=== PATIENT | female | born 1930 | race Caucasian/White ===

== ENCOUNTER 2022-01-15 11:04 | Observation (INO) ==
[2022-01-15] MEDS ORDERED: ACETAMINOPHEN 325 MG TABLET PO PRN (12:46)
[2022-01-15] MEDS ORDERED: ONDANSETRON 4 MG/2 ML VIAL IV PRN (12:46)
[2022-01-15 13:24] LABS: Basophils % 0.3 % (0.0-0.8); Hematocrit 40.2 VOL% (35.7-47.0); Hemoglobin 13.4 GM/DL (12.0-16.0); Immature Granulocytes % 0.3 %; Immature Granulocytes Absolute 0.01 #; Lymphocytes # 0.5 10*3/uL (1.4-4.0); Lymphocytes % 14.6 % (21.3-54.2); Mean Corpuscular HGB Conc 33.3 GM/DL (32-36); Mean Corpuscular Volume 93.1 FL (87-102); Mean Platelet Volume 8.6 FL (9.6-12.0); Monocytes # 0.5 10*3/uL (0.11-0.8); Monocytes % 13.5 % (1.7-12.7); Neutrophils % 71.3 % (38.7-73.9); Platelet Count 185 T/CUMM (130-400); Red Blood Count 4.32 MC/CUMM (3.8-5.5); Red Cell Distribution Width 12.6 % (9.3-17.3); White Blood Count 3.7 T/CUMM (4-12)
[2022-01-15 13:45] LABS: Albumin 3.9 G/DL (3.4-5.0); Bilirubin,Total 0.5 MG/DL (0.20-1.00); Calcium 8.8 MG/DL (8.5-10.1); Osmolality,Calculated 264.5 MOS/KG (273-304); Potassium 3.6 MMOL/L (3.5-5.1); Total Protein 6.9 G/DL (6.4-8.2)
[2022-01-15] MEDS: cefTRIAXone 1,000 MG in SODIUM CHLORIDE 0.9% 100 ML IV SCH (17:35)
[2022-01-15] MEDS: SODIUM CHLORIDE 0.45% 1,000 ML IV SCH (17:35)
[2022-01-15] MEDS: ENOXAPARIN 30 MG/0.3 ML SYRINGE SUBCUT SCH (20:57)
[2022-01-15] MEDS: LOSARTAN/HCTZ 50-12.5 MG TABLET PO SCH (20:58)
[2022-01-15] MEDS: DOCUSATE SODIUM 100 MG CAPSULE PO SCH (20:59)
[2022-01-16 05:57] LABS: Risk Ratio 1.75
[2022-01-16] MEDS: SODIUM CHLORIDE 0.45% 1,000 ML IV SCH ×2 (06:02→20:27)
[2022-01-16] MEDS: LEVOTHYROXINE 100 MCG TABLET PO SCH (06:02)
[2022-01-16 06:20] LABS: Mucus,Urine Occasional /LPF (Occasional); RBC,Urine 2 /HPF (0-4); Squamous Epithelial Cell,Urine Occasional /HPF (0-10)
[2022-01-16 06:21] LABS: Protein,Urine 30 mg/dL (Negative); Urine Appearance Clear (Clear); Urine Color Yellow (Yellow); Urine Specific Gravity 1.015 (1.001-1.035)
[2022-01-16 06:22] LABS: Bilirubin,Urine Negative (Negative); Blood, Urine Negative (Negative); Glucose,Urine (UA) Negative (Negative); Ketones,Urine Trace mg/dL (Negative); Nitrite,Urine Negative (Negative); Urine Urobilinogen 0.2 eU/dL (<2.0)
[2022-01-16] MEDS ORDERED: amLODIPine 5 MG TABLET PO SCH (09:00)
[2022-01-16] MEDS: GABAPENTIN 100 MG CAPSULE PO SCH (09:52)
[2022-01-16] MEDS: LOSARTAN/HCTZ 50-12.5 MG TABLET PO SCH ×2 (09:53→20:19)
[2022-01-16] MEDS: PANTOPRAZOLE 40 MG TABLET PO SCH (09:53)
[2022-01-16] MEDS: amLODIPine 5 MG TABLET PO SCH (09:54)
[2022-01-16] MEDS: ASPIRIN EC 81 MG TABLET PO SCH (09:54)
[2022-01-16] MEDS: cefTRIAXone 1,000 MG in SODIUM CHLORIDE 0.9% 100 ML IV SCH (17:46)
[2022-01-16] MEDS: DOCUSATE SODIUM 100 MG CAPSULE PO SCH ×2 (19:29→20:21)
[2022-01-16] MEDS: ENOXAPARIN 30 MG/0.3 ML SYRINGE SUBCUT SCH (20:19)
[2022-01-17] MEDS: LEVOTHYROXINE 100 MCG TABLET PO SCH (06:31)
[2022-01-17] MEDS: SODIUM CHLORIDE 0.45% 1,000 ML IV SCH (06:33)
[2022-01-17 06:37] LABS: Basophils % 0.3 % (0.0-0.8); Eosinophils % 0.6 % (0.00-10.9); Hematocrit 34.5 VOL% (35.7-47.0); Hemoglobin 11.6 GM/DL (12.0-16.0); Immature Granulocytes % 0.6 %; Immature Granulocytes Absolute 0.02 #; Lymphocytes # 1.1 10*3/uL (1.4-4.0); Lymphocytes % 30.3 % (21.3-54.2); Mean Corpuscular HGB Conc 33.6 GM/DL (32-36); Mean Corpuscular Volume 93.8 FL (87-102); Mean Platelet Volume 9.4 FL (9.6-12.0); Monocytes # 0.4 10*3/uL (0.11-0.8); Neutrophils % 58.2 % (38.7-73.9); Platelet Count 175 T/CUMM (130-400); Red Blood Count 3.68 MC/CUMM (3.8-5.5); Red Cell Distribution Width 12.4 % (9.3-17.3); White Blood Count 3.6 T/CUMM (4-12)
[2022-01-17 07:00] LABS: Calcium 8.5 MG/DL (8.5-10.1); Osmolality,Calculated 266.2 MOS/KG (273-304); Potassium 3.5 MMOL/L (3.5-5.1)
[2022-01-17] MEDS: DOCUSATE SODIUM 100 MG CAPSULE PO SCH (09:22)
[2022-01-17] MEDS: LOSARTAN/HCTZ 50-12.5 MG TABLET PO SCH (09:22)
[2022-01-17] MEDS: GABAPENTIN 100 MG CAPSULE PO SCH (09:22)
[2022-01-17] MEDS: ASPIRIN EC 81 MG TABLET PO SCH (09:23)
[2022-01-17] MEDS: PANTOPRAZOLE 40 MG TABLET PO SCH (09:23)
[2022-01-17] MEDS: amLODIPine 5 MG TABLET PO SCH (09:23)
[2022-01-17 12:01] VITALS: BP 160/74
== END 2022-01-17 14:20 | disposition home health service (06) ==
LOC: N.2W
PROVIDERS: ADMIT Family Medicine; ATTEND Family Medicine